=== PATIENT | female | born 1975 | race Caucasian/White ===

== ENCOUNTER 2018-03-08 12:22 | Emergency (ER) | payer SELFPAY | END 2018-03-08 12:35 | disposition left against medical advice (07) | LOC: E/R 12:22 | DX: Z53.21 Procedure and treatment not carried out due to patient leaving prior to being seen by health care provider (principal) ==

== ENCOUNTER 2018-04-20 15:33 | Inpatient (IN) | payer OTHER ==
[2018-04-20 16:08] LABS: ADD MAN DIFF? NO
[2018-04-20 16:13] LABS: BASOPHIL # 0.1 10^3/ul (0.0-0.1); EOSINOPHILS # 0.1 10^3/ul (0.0-0.5); EOSINOPHILS % 0.8 % (0.0-7.0); HEMATOCRIT 38.4 % (37.0-47.0); HEMOGLOBIN 13.1 g/dl (12.0-16.0); LYMPHOCYTES # 2.7 10^3/ul (0.8-2.9); LYMPHOCYTES % 31.6 % (15.0-51.0); MEAN CORPUSCULAR HEMOGLOBIN 29.6 pg (29.0-33.0); MEAN CORPUSCULAR HGB CONC 34.1 g/dl (32.0-37.0); MEAN CORPUSCULAR VOLUME 86.7 fl (82.0-101.0); MEAN PLATELET VOLUME 9.7 fl (7.4-10.4); MONOCYTE # 0.6 10^3/ul (0.3-0.9); MONOCYTES % 7.1 % (0.0-11.0); PLATELET COUNT 338 10^3/UL (140-415); RED BLOOD COUNT 4.43 10^6/ul (4.20-5.40); RED CELL DISTRIBUTION WIDTH 12.6 % (11.5-14.5)
[2018-04-20 16:13] LABS: WHITE BLOOD COUNT 8.4 10^3/ul (4.8-10.8)
[2018-04-20] MEDS: SOD CHLORIDE 0.9% 1,000 ML IV (16:13)
[2018-04-20 16:32] LABS: ANION GAP 12 (5-13); BLOOD UREA NITROGEN 10 mg/dl (7-20); CALCIUM 9.7 mg/dl (8.4-10.2); CARBON DIOXIDE 24 mmol/L (21-31); CHLORIDE 100 mmol/L (97-110); CREATININE 0.46 mg/dl (0.44-1.00); Estimated GFR > 60 mL/min (>60); GLUCOSE 212 mg/dl (70-220); POTASSIUM 4.1 mmol/L (3.5-5.1); SODIUM 136 mmol/L (135-144)
[2018-04-20 16:42] LABS: INR 1.17; PT RATIO 1.2
[2018-04-20 16:44] LABS: TROPONIN-I < 0.012 ng/ml (0.000-0.120)
[2018-04-20 16:50] LABS: ADD UMIC YES; UR ASCORBIC ACID NEGATIVE (NEGATIVE); UR BILIRUBIN (Dip) NEGATIVE (NEGATIVE); UR BLOOD (Dip) 3+ mg/dL (NEGATIVE); UR CLARITY CLOUDY (CLEAR); UR COLOR YELLOW (YELLOW); UR GLUCOSE (Dip) 3+ mg/dL (NEGATIVE); UR KETONES (Dip) NEGATIVE (NEGATIVE); UR LEUKOCYTE ESTERASE (Dip) TRACE Leu/ul (NEGATIVE); UR MUCUS FEW /HPF (NONE SEEN); UR NITRITE (Dip) POSITIVE (NEGATIVE); UR RBC > 182 /HPF (0-5); UR SPECIFIC GRAVITY (Dip) 1.014 (1.003-1.030); UR SQUAMOUS EPITHELIAL CELL FEW /HPF (FEW); UR TOTAL PROTEIN (Dip) 1+ mg/dl (NEGATIVE); UR UROBILINOGEN (Dip) NEGATIVE (NEGATIVE); UR WBC 171 /HPF (0-5)
[2018-04-20 17:09] LABS: TRIGLYCERIDES 950 mg/dl (0-149)
[2018-04-20] MEDS: CEFTRIAXONE 1 GM/50 ML (PMX) 50 ML IVPB (17:30)
[2018-04-20 17:56] LABS: CHOLESTEROL 288 mg/dl (100-200)
[2018-04-20 17:56] LABS: CHOL/HDL RATIO 9.6 RATIO; HDL CHOLESTEROL 30 mg/dl (34-88); LDL CHOLESTEROL,CALCULATED 68 mg/dl
[2018-04-20 18:42] LABS: HEMOGLOBIN A1C 8.4 % (0-5.9)
[2018-04-20] MEDS: DEXAMETHASONE 10 MG/ML 1 ML INJ IV (19:21)
[2018-04-20] MEDS ORDERED: ACETAMINOPHEN 325 MG TAB PO (19:30)
[2018-04-20] MEDS ORDERED: ONDANSETRON 4 MG INJ IV ×2 (19:30→20:30)
[2018-04-20] MEDS ORDERED: NACL 0.9% 3 ML SYG IV (20:30)
[2018-04-20] MEDS: LEVETIRACETAM 1000 MG (PMX) 100 ML IVPB (20:43)
[2018-04-20] MEDS: INSULIN ASPART [NOVOLOG] 3 ML PEN SC (21:15)
[2018-04-20] MEDS: LEVETIRACETAM 500 MG TAB PO (22:21)
[2018-04-20] MEDS ORDERED: GLUCOSE GEL 15 GRAM TUBE BUCCAL ×2 (22:30→23:45)
[2018-04-20] MEDS ORDERED: GLUCOSE GEL 15 GRAM TUBE PO ×4 (22:30→23:45)
[2018-04-20] MEDS ORDERED: GLUCAGON 1 MG INJ IM ×2 (22:30→23:45)
[2018-04-20] MEDS ORDERED: DEXTROSE 50% 50 ML SYRINGE IV ×4 (22:30→23:45)
[2018-04-21] MEDS: DEXAMETHASONE 4 MG/ML 1 ML INJ IV ×4 (00:05→17:41)
[2018-04-21] MEDS: ACCU-CHEK XX (02:00)
[2018-04-21] MEDS: INSULIN ASPART [NOVOLOG] 3 ML PEN SC ×4 (03:37→20:47)
[2018-04-21] MEDS ORDERED: INSULIN ASPART [NOVOLOG] 3 ML PEN SC (05:00)
[2018-04-21] MEDS: Insulin NOVOLOG SS MODERATE Algorithm(NPO/TPN/ENTERAL FEEDS) SC ×3 (05:28→12:43)
[2018-04-21 06:58] LABS: CHOL/HDL RATIO 6.2 RATIO; HDL CHOLESTEROL 48 mg/dl (34-88); LDL CHOLESTEROL,CALCULATED 188 mg/dl; TRIGLYCERIDES 327 mg/dl (0-149)
[2018-04-21 06:58] LABS: CHOLESTEROL 301 mg/dl (100-200)
[2018-04-21 07:08] LABS: HEMOGLOBIN A1C 9.6 % (0-5.9)
[2018-04-21] MEDS: LEVETIRACETAM 500 MG TAB PO ×2 (08:23→20:47)
[2018-04-21] MEDS ORDERED: FENOFIBRATE 145 MG TAB PO (09:00)
[2018-04-21] MEDS: CEFTRIAXONE 1 GM/50 ML (PMX) 50 ML IVPB (17:41)
[2018-04-21] MEDS: INSULIN GLARGINE [LANTus] (100 UNITS/ML) SYG SC (20:46)
[2018-04-22] MEDS: DEXAMETHASONE 4 MG/ML 1 ML INJ IV ×3 (00:20→12:16)
[2018-04-22] MEDS: INSULIN GLARGINE [LANTus] (100 UNITS/ML) SYG SC (01:36)
[2018-04-22] MEDS: ACCU-CHEK XX (01:42)
[2018-04-22] MEDS: INSULIN ASPART [NOVOLOG] 3 ML PEN SC ×5 (05:53→12:18)
[2018-04-22] MEDS: LEVETIRACETAM 500 MG TAB PO (08:27)
[2018-04-22] MEDS: metFORMIN 850 MG TAB PO (15:06)
[2018-04-22] MEDS ORDERED: NATEGLINIDE 60 MG TAB PO (17:35)
[2018-04-22] MEDS ORDERED: DEXAMETHASONE 4 MG TAB PO (18:00)
[2018-04-22] MEDS ORDERED: INSULIN GLARGINE [LANTus] (100 UNITS/ML) SYG SC (20:00)
== END 2018-04-22 16:10 | disposition home or self-care (01) | DRG 54 ==
LOC: PP2 19:19 → E/R 15:33 → PP2 04-21 00:11
PROVIDERS: Internal Medicine
DX: C71.8 Malignant neoplasm of overlapping sites of brain (principal); G93.6 Cerebral edema; N39.0 Urinary tract infection, site not specified; I10 Essential (primary) hypertension; E78.5 Hyperlipidemia, unspecified; E11.9 Type 2 diabetes mellitus without complications; R51 Headache
CPT/HCPCS: 36415; 70450; 70553; 71045; 80048; 80061; 81001; 81025; 82962; 83036; 84484; 85025; 85610; 85730; 87086; 93005; 96374; 99291-25